=== PATIENT | female | born 1940 | race African-American/Black ===

== ENCOUNTER 2018-05-07 12:38 | Inpatient (IN) | payer MEDICARE, MEDICAID ==
[~2018-05-07] VITALS: Ht 160 cm; Wt 89.5 kg
[2018-05-07] MEDS ORDERED: MECLIZINE 25MG TABLET PO ONE (14:45)
[2018-05-07 15:18] LABS: BASOPHILS % 0.4 % (0.0-2.0); EOSINOPHILS % 4.1 % (0.0-5.0); HEMATOCRIT. 39.2 % (36.0-48.0); HEMOGLOBIN. 12.9 g/dL (12.0-16.0); LYMPHOCYTES % 28.5 % (20.0-50.0); MEAN CORPUSCULAR HEMOGLOBIN 31.9 pg (28.0-32.0); MEAN CORPUSCULAR VOLUME 97.2 fL (81.0-99.0); MEAN PLATELET VOLUME 8.4 fl (7.4-10.4); MONOCYTES % 10.1 % (2.0-8.0); NEUTROPHILS % 56.9 % (40.0-76.0); PLATELET 278 x1000/uL (130-400); RED BLOOD CELL COUNT 4.03 mill/uL (4.2-5.4); RED CELL DISTRIBUTION WIDTH 14.1 % (11.6-14.6)
[2018-05-07 15:21] LABS: CHLORIDE 106 mEq/L (98-107)
[2018-05-07 15:23] LABS: PROTHROMBIN TIME 9.8 sec (9.1-11.1)
[2018-05-07] MEDS ORDERED: ASPIRIN 325MG TABLET PO ONE (16:30)
[2018-05-07 18:25] LABS: CLARITY URINE CLEAR (CLEAR); COLOR URINE YELLOW (YELLOW); KETONES URINE NEGATIVE (NEGATIVE); LEUKOCYTE ESTERASE URINE 3+ (NEGATIVE); NITRITE URINE NEGATIVE (NEGATIVE); OCCULT BLOOD URINE TRACE (NEGATIVE); PH URINE 6.5 (4.5-8.0); PROTEIN URINE NEGATIVE (NEGATIVE); SPECIFIC GRAVITY URINE 1.016 (1.005-1.030)
[2018-05-07] MEDS ORDERED: SODIUM CHLORIDE 0.9% 1,000 ML IV ONE (18:58)
[2018-05-07] MEDS ORDERED: CEFTRIAXONE 1 G PREMIX 50 ML IV ONE (19:30)
[2018-05-07] MEDS ORDERED: LORAZEPAM 2MG/ML CPJ IV PRN (22:00)
[2018-05-07] MEDS ORDERED: ONDANSETRON HCL 4MG/2ML INJ IV PRN (22:00)
[2018-05-07] MEDS ORDERED: ACETAMINOPHEN 325MG TABLET PO PRN (22:00)
[2018-05-07] MEDS ORDERED: CLONIDINE 0.1MG TABLET PO PRN (22:00)
[2018-05-07] MEDS ORDERED: ACETAMINOPHEN 650MG/20.3ML UDC GT PRN (22:00)
[2018-05-08] VITALS (7 sets, daily range): BP systolic 117–155; BP diastolic 65–92
[2018-05-08] MEDS: SODIUM CHLORIDE 0.9% 1,000 ML IV SCH (01:57)
[2018-05-08] MEDS ORDERED: METO-539 MT (02:50)
[2018-05-08] MEDS ORDERED: ALLO100T MT (02:50)
[2018-05-08] MEDS ORDERED: LOSA50TA20 MT (02:50)
[2018-05-08] MEDS ORDERED: AMLO10TA80 MT (02:52)
[2018-05-08] MEDS ORDERED: ASPI-1158 MT (02:56)
[2018-05-08] MEDS ORDERED: LORA10TA7 MT (03:10)
[2018-05-08] MEDS ORDERED: PRAV20TA57 MT (03:10)
[2018-05-08] MEDS ORDERED: METF-416 MT (03:11)
[2018-05-08] MEDS ORDERED: SITA50TA3 MT (03:12)
[2018-05-08 06:55] LABS: BASOPHILS % 0.5 % (0.0-2.0); EOSINOPHILS % 4.1 % (0.0-5.0); HEMATOCRIT. 38.6 % (36.0-48.0); HEMOGLOBIN. 12.6 g/dL (12.0-16.0); LYMPHOCYTES % 38.8 % (20.0-50.0); MEAN CORPUSCULAR HEMOGLOBIN 31.6 pg (28.0-32.0); MEAN CORPUSCULAR VOLUME 96.7 fL (81.0-99.0); MEAN PLATELET VOLUME 8.7 fl (7.4-10.4); MONOCYTES % 8.1 % (2.0-8.0); NEUTROPHILS % 48.5 % (40.0-76.0); PLATELET 282 x1000/uL (130-400); RED BLOOD CELL COUNT 3.99 mill/uL (4.2-5.4); RED CELL DISTRIBUTION WIDTH 13.9 % (11.6-14.6)
[2018-05-08 07:35] LABS: CHLORIDE 107 mEq/L (98-107)
[2018-05-08 07:43] LABS: PHOSPHORUS 3.8 mg/dL (2.5-4.9)
[2018-05-08] MEDS: ENOXAPARIN 40MG/0.4ML SYR SUBCUT SCH (08:54)
[2018-05-08] MEDS ORDERED: DEXTROSE 50% WATER 50ML SYRINGE IV PRN (09:45)
[2018-05-08] MEDS: INSULIN LISPRO 100 UNITS/ML SUBCUT SCH ×3 (12:15→21:00)
[2018-05-08] MEDS: BLOOD SUGAR DIAGNOSTIC STRIP TEST SCH ×3 (12:19→21:24)
[2018-05-08] MEDS ORDERED: CEFTRIAXONE 1 G PREMIX 50 ML IV SCH (20:00)
[2018-05-09] VITALS: BP 148/92
[2018-05-09] MEDS: SODIUM CHLORIDE 0.9% 1,000 ML IV SCH (00:23)
[2018-05-09 04:00] VITALS: BP 127/80
[2018-05-09] MEDS: INSULIN LISPRO 100 UNITS/ML SUBCUT SCH ×2 (06:05→12:21)
[2018-05-09] MEDS: BLOOD SUGAR DIAGNOSTIC STRIP TEST SCH ×3 (06:05→16:45)
[2018-05-09 08:00] VITALS: BP 109/74
[2018-05-09] MEDS: ENOXAPARIN 40MG/0.4ML SYR SUBCUT SCH (09:13)
[2018-05-09 09:40] LABS: BASOPHILS % 0.5 % (0.0-2.0); EOSINOPHILS % 3.6 % (0.0-5.0); HEMATOCRIT. 37.1 % (36.0-48.0); HEMOGLOBIN. 12.2 g/dL (12.0-16.0); LYMPHOCYTES % 33.7 % (20.0-50.0); MEAN CORPUSCULAR HEMOGLOBIN 31.9 pg (28.0-32.0); MEAN CORPUSCULAR VOLUME 96.9 fL (81.0-99.0); MEAN PLATELET VOLUME 8.4 fl (7.4-10.4); MONOCYTES % 7.6 % (2.0-8.0); NEUTROPHILS % 54.6 % (40.0-76.0); PLATELET 263 x1000/uL (130-400); RED BLOOD CELL COUNT 3.83 mill/uL (4.2-5.4); RED CELL DISTRIBUTION WIDTH 14.2 % (11.6-14.6)
[2018-05-09 09:43] LABS: CHLORIDE 106 mEq/L (98-107)
[2018-05-09 09:51] LABS: PHOSPHORUS 3.9 mg/dL (2.5-4.9)
[2018-05-09 12:00] VITALS: BP 128/86
[2018-05-09 15:24] VITALS: BP 145/85
== END 2018-05-09 17:45 | disposition home or self-care (01) | DRG 683 ==
LOC: ER 12:38 → 5WST 15:56 → EDBEDREQ 16:03 → SUPCPDRO 21:56 → ENRESERV 22:54
PROVIDERS: ADMIT Internal Medicine Nephrology; ATTEND Internal Medicine Nephrology
DX: N17.9 Acute kidney failure, unspecified (principal); N39.0 Urinary tract infection, site not specified; E86.9 Volume depletion, unspecified; E11.9 Type 2 diabetes mellitus without complications; I25.10 Atherosclerotic heart disease of native coronary artery without angina pectoris; Z86.73 Personal history of transient ischemic attack (TIA), and cerebral infarction without residual deficits; Z95.5 Presence of coronary angioplasty implant and graft
CPT/HCPCS: 36415; 70551; 71045; 80048; 82962; 83605; 83735; 83880; 84100; 84484; 93005; 93880; 96365; 97116; 97162; 99285; J0696; J1650; J1815; J7030; J8597